=== PATIENT | female | born 1965 | race African-American/Black ===

== ENCOUNTER 2020-01-08 10:52 | Emergency (ER) | payer MEDICAID ==
[~2020-01-08] VITALS: Ht 172.7 cm; Wt 90.9 kg
[2020-01-08 11:22] LABS: BASO % 1 % (0-3); EOS # 0.1 x10^3/uL (0.0-0.7); EOS % 2 % (0-3); HEMATOCRIT 40.9 % (36.0-47.0); HEMOGLOBIN 13.4 g/dL (12.0-15.5); LYMPH # 1.7 x10^3/uL (1.0-4.8); LYMPH % 28 % (24-48); MEAN CORPUSCULAR HEMOGLOBIN 27 pg (25-35); MEAN CORPUSCULAR HGB CONC 33 g/dL (31-37); MEAN CORPUSCULAR VOLUME 81 fL (79-100); MONO # 0.5 x10^3/uL (0.0-1.1); MONO % 9 % (0-9); NEUT # 3.6 x10^3/uL (1.8-7.7); NEUT % 61 % (31-73); PLATELET COUNT 335 x10^3/uL (140-400); RED BLOOD COUNT 5.03 x10^6/uL (3.50-5.40); RED CELL DISTRIBUTION WIDTH 14.1 % (11.5-14.5); WHITE BLOOD COUNT 5.9 x10^3/uL (4.0-11.0)
[2020-01-08 11:34] LABS: CALCIUM 9.9 mg/dL (8.5-10.1); CREATININE 0.7 mg/dL (0.6-1.0); GFR 87.2; POTASSIUM 3.4 mmol/L (3.5-5.1)
[2020-01-08 11:39] LABS: ALBUMIN 3.2 g/dL (3.4-5.0); ALBUMIN/GLOBULIN RATIO 0.7 (1.0-1.7); TOTAL BILIRUBIN 0.4 mg/dL (0.2-1.0); TOTAL PROTEIN 8.1 g/dL (6.4-8.2)
[2020-01-08 11:54] LABS: PROTHROMBIN TIME PATIENT 13.4 SEC (11.7-14.0)
--- NOTE | 2020-01-08 11:58 | PHYS DOC ---
Past Medical History Past Medical History: Dementia, Hypertension, Hepatitis, Seizure Additional Past Medical Histor: ENCEPHALOPATHY Past Surgical History: Other Additional Past Surgical Histo: UNKNOWN Smoking Status: Former Smoker Alcohol Use: None General Adult EDM: Chief Complaint: ALTERED MENTAL STATUS HPI: HPI: Patient is a 54 year old female with history of dementia, hypertension, hepatitis, seizures, who presents today from a snf to be evaluated after having a seizure. [facility] staff reported to EMS patient had a seizure around 10 AM this morning. It is unknown how long the seizure lasted. Patient herself is nonverbal. Review of Systems: Review of Systems: Constitutional: unable to assess due to mental status Eyes: unable to assess due to mental status HENT: unable to assess due to mental status Respiratory: unable to assess due to mental status Cardiovascular: unable to assess due to mental status GI: unable to assess due to mental status : unable to assess due to mental status Musculoskeletal: unable to assess due to mental status Integument: unable to assess due to mental status Neurologic: Reports seizure. Denies headache, focal weakness or sensory changes. [] Psychiatric: unable to assess due to mental status Heart Score: Risk Factors: Risk Factors: DM, Current or recent (<one month) smoker, HTN, HLP, family histo ry of CAD, obesity. Risk Scores: Score 0 - 3: 2.5% MACE over next 6 weeks - Discharge Home Score 4 - 6: 20.3% MACE over next 6 weeks - Admit for Clinical Observation Score 7 - 10: 72.7% MACE over next 6 weeks - Early Invasive Strategies Physical Exam: PE: Constitutional: Well developed, well nourished, no acute distress, non-toxic appearance. [] HENT: Normocephalic, bilateral external ears normal, oropharynx moist, no oral exudates, nose normal. [] Eyes: PERRLA, EOMI, conjunctiva normal, no discharge. [] Neck: Normal range of motion, no tenderness, supple, no stridor. [] Cardiovascular:Heart rate regular rhythm, no murmur [] Lungs & Thorax: Bilateral breath sounds clear to auscultation [] Abdomen: Bowel sounds normal, soft, no tenderness, no masses, no pulsatile masses. [] Skin: Warm, dry, no erythema, no rash. [] Back: No tenderness, no CVA tenderness. [] Extremities: No tenderness, no cyanosis, no clubbing, ROM intact, no edema. [] Neurologic: Alert and oriented X 1, normal motor function, normal sensory function, no focal deficits noted. [] Psychologic: Flat affect. Current Patient Data: Labs: Laboratory Tests Test 01/08/20 11:03 White Blood Count 5.9 x10^3/uL (4.0-11.0) Red Blood Count 5.03 x10^6/uL (3.50-5.40) Hemoglobin 13.4 g/dL (12.0-15.5) Hematocrit 40.9 % (36.0-47.0) Mean Corpuscular Volume 81 fL (79-100) Mean Corpuscular Hemoglobin 27 pg (25-35) Mean Corpuscular Hemoglobin Concent 33 g/dL (31-37) Red Cell Distribution Width 14.1 % (11.5-14.5) Platelet Count 335 x10^3/uL (140-400) Neutrophils (%) (Auto) 61 % (31-73) Lymphocytes (%) (Auto) 28 % (24-48) Monocytes (%) (Auto) 9 % (0-9) Eosinophils (%) (Auto) 2 % (0-3) Basophils (%) (Auto) 1 % (0-3) Neutrophils # (Auto) 3.6 x10^3/uL (1.8-7.7) Lymphocytes # (Auto) 1.7 x10^3/uL (1.0-4.8) Monocytes # (Auto) 0.5 x10^3/uL (0.0-1.1) Eosinophils # (Auto) 0.1 x10^3/uL (0.0-0.7) Basophils # (Auto) 0.0 x10^3/uL (0.0-0.2) Sodium Level 147 mmol/L (136-145) H Potassium Level 3.4 mmol/L (3.5-5.1) L Chloride Level 110 mmol/L (98-107) H Carbon Dioxide Level 28 mmol/L (21-32) Anion Gap 9 (6-14) Blood Urea Nitrogen 23 mg/dL (7-20) H Creatinine 0.7 mg/dL (0.6-1.0) Estimated GFR (Cockcroft-Gault) 87.2 BUN/Creatinine Ratio 33 (6-20) H Glucose Level 95 mg/dL (70-99) Calcium Level 9.9 mg/dL (8.5-10.1) Total Bilirubin 0.4 mg/dL (0.2-1.0) Aspartate Amino Transferase (AST) 24 U/L (15-37) Alanine Aminotransferase (ALT) 23 U/L (14-59) Alkaline Phosphatase 80 U/L (46-116) Total Protein 8.1 g/dL (6.4-8.2) Albumin 3.2 g/dL (3.4-5.0) L Albumin/Globulin Ratio 0.7 (1.0-1.7) L Laboratory Tests 01/08/20 11:03 Laboratory Tests 01/08/20 11:03 Vital Signs: Vital Signs Date Time Temp Pulse Resp B/P (MAP) Pulse Ox O2 Delivery O2 Flow Rate FiO2 01/08/20 11:00 98.5 86 18 130/71 (90) 98 Room Air 98.5 EKG: EKG: [] Radiology/Procedures: Radiology/Procedures: []PROCEDURE: PORTABLE CHEST 1V EXAM: CHEST ONE VIEW. HISTORY: COVID-19 positive, altered mental status. COMPARISON: None.. FINDINGS: A frontal view of the chest is obtained. There are no confluent infiltrates. There is no pneumothorax or pleural effusion. The heart is not enlarged. IMPRESSION: 1. No confluent infiltrates. Electronically signed by: Ynes Carrasquillo MD (01/08/2020 12:11 PM) [facility] DICTATED and SIGNED BY: MARCO CARRASQUILLO MD DATE: 01/08/20 1211 PROCEDURE: CT HEAD WO CONTRAST EXAM: Head CT without contrast. HISTORY: Altered mental status. TECHNIQUE: Computed tomographic images of the head were obtained without contrast. *One or more of the following individualized dose reduction techniques were utilized for this examination: 1. Automated exposure control. 2. Adjustment of the mA and/or kV according to patient size. 3. Use of iterative reconstruction technique. COMPARISON: None. FINDINGS: There is no hemorrhage. There is no mass effect or midline shift. There is cerebral volume loss with compensatory enlargement of the ventricles, within expected for patient age. There are areas of decreased attenuation within the cerebral white matter, nonspecific and likely related to chronic small vessel disease. The visualized portions of the orbits, paranasal sinuses and mastoid air cells are unremarkable. No suspicious calvarial lesion is seen. IMPRESSION: 1. No acute intracranial finding. Note is made that MRI is more sensitive for acute infarction. 2. Bilateral cerebral white matter changes, a nonspecific finding which can be seen with chronic small vessel disease. This is advanced for patient age. 3. Cerebral volume loss, also advanced for patient age. Electronically signed by: Lelo Gunn MD (01/08/2020 11:53 AM) [id number] DICTATED and SIGNED BY: LELO GUNN MD DATE: 01/08/20 1153 Course & Med Decision Making: Course & Med Decision Making Pertinent Labs and Imaging studies reviewed. (See chart for details) This is a 54-year-old female patient presenting to the ED today to be evaluated after having a seizure in a snf. Patient is nonverbal. She has history of seizures. CT of the head, chest x-ray, and negative for any acute findings. CBC with no acute findings, CMP with sodium of 147, potassium 3.4, creatinine and BUN are normal. Urine analysis noted for small amount of leukocytes as well as specific gravity greater than >1.030, 30 proteins and ketones. Patient was given IV fluids in the ED. She was given Rocephin. Her lactic is normal at 1.8. [facility] staff that knows this patient called and said her current mental status is her baseline. Patient was discharged back to the snf. Dragon Disclaimer: Dragon Disclaimer: This electronic medical record was generated, in whole or in part, using a voice recognition dictation system. Departure Departure Impression: Primary Impression: UTI (urinary tract infection) Qualified Codes: N39.0 - Urinary tract infection, site not specified Additional Impression: Dehydration Disposition: 01 HOME, SELF-CARE Condition: STABLE Referrals: MYRANDA DAVIES MD (PCP) follow up in 1 week with your doctor Patient Instructions: Dehydration, Adult, Urinary Tract Infection Additional Instructions: Your urine was positive for urinary tract infection, take the prescribed antibiotics until completed. Follow-up with your own doctor in the course of this week. He also noted to be dehydrated. Push fluids. Scripts Cephalexin (CEPHALEXIN) 500 Mg Tablet 1 TAB PO BID, #14 TAB Prov: MABEL PEREZ PERCY 01/08/20 Justicifation of Admission Dx: Justifications for Admission: Justification of Admission Dx: N/A MABEL PEREZ APRN Jan 08, 2020 11:58
--- NOTE | 2020-01-08 12:14 | RAD ---
EXAM: CHEST ONE VIEW. HISTORY: COVID-19 positive, altered mental status. COMPARISON: None.. FINDINGS: A frontal view of the chest is obtained. There are no confluent infiltrates. There is no pneumothorax or pleural effusion. The heart is not enlarged. IMPRESSION: 1. No confluent infiltrates. Electronically signed by: Ynes Carrasquillo MD (01/08/2020 12:11 PM) [facility]
[2020-01-08] MEDS ORDERED: IV NORMAL SALINE 1000ML BAG 1,000 ML IV ONE (12:30)
[2020-01-08 14:29] LABS: BILIRUBIN,URINE SMALL (NEG); CLARITY,URINE CLEAR; COLOR,URINE AMBER; NITRITE,URINE NEGATIVE (NEG); PH,URINE 5.5 (<5.0-8.0); PROTEIN,URINE 30 mg/dL (NEG-TRACE)
[2020-01-08 14:39] LABS: HYALINE CASTS, URINE MODERATE /HPF; SQUAMOUS EPITHELIAL CELL,UR FEW /LPF
[2020-01-08 14:40] LABS: BACTERIA,URINE 0 /HPF (0-FEW)
[2020-01-08] MEDS ORDERED: CEPH500T PO (14:56)
[2020-01-08] MEDS ORDERED: cefTRIAXone IV Push 1 GM VIAL. IVP ONE (15:00)
[2020-01-08 16:30] VITALS: BP 128/77
--- NOTE | 2020-01-10 18:01 | EKG ---
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
== END 2020-01-08 16:30 | disposition home or self-care (01) ==
LOC: ER 10:52
DX: N39.0 Urinary tract infection, site not specified (principal); E86.0 Dehydration; R56.9 Unspecified convulsions; R41.82 Altered mental status, unspecified; I10 Essential (primary) hypertension; R94.31 Abnormal electrocardiogram [ECG] [EKG]; F03.90 Unspecified dementia, unspecified severity, without behavioral disturbance, psychotic disturbance, mood disturbance, and anxiety; Z87.891 Personal history of nicotine dependence
CPT/HCPCS: 36415; 70450; 71045; 80053; 81001; 82553; 83605; 84145; 85025; 85610; 85730; 87040; 87086; 93005; 96361; 96374; 99285; J0696; J7030

== ENCOUNTER 2020-07-15 14:27 | Emergency (ER) | payer MEDICAID ==
[~2020-07-15] VITALS: Ht 172.7 cm; Wt 81.0 kg
[2020-07-15 14:27] VITALS: BP 120/57
[~2020-07-15 14:27] MED LIST: CEPH500T PO
[2020-07-15] MEDS ORDERED: DIPH,PERTUSS(ACELL),TET VAC/PF 0.5 ML SYRINGE. VAX IM ONE (15:00)
--- NOTE | 2020-07-15 15:30 | PHYS DOC ---
Past Medical History Past Medical History: Dementia, Hypertension, Hepatitis, Seizure Additional Past Medical Histor: ENCEPHALOPATHY Past Surgical History: Other Additional Past Surgical Histo: UNKNOWN Smoking Status: Former Smoker Alcohol Use: None General Adult EDM: Chief Complaint: MECHANICAL FALL HPI: HPI: Patient is a 54 year old female who presents with here by EMS from [facility] after she was sitting in her wheelchair and was witnessed falling forward and sliding out of the wheelchair. She did hit her head mid forehead on the edge of the table causing 1/2 cm laceration. [facility] states that the patient is acting normal and at her baseline. She does have Alzheimer's disease and does not follow commands and is nonverbal. [facility] states that the patient did not lose consciousness. Patient is not on blood thinners. She is a DNR. She has a history of Alzheimer's, dementia, hepatitis, hypertension, encephalopathy, seizures, muscle weakness and failure to thrive. Using faces pain scale patient would rate at a 4 out of 10. Review of Systems: Review of Systems: Constitutional: Denies fever or chills. [] Eyes: Denies change in visual acuity. [] HENT: Denies nasal congestion or sore throat. [] Respiratory: Denies cough or shortness of breath. [] Cardiovascular: Denies chest pain or edema. [] GI: Denies abdominal pain, nausea, vomiting, bloody stools or diarrhea. [] : Denies dysuria. [] Musculoskeletal: Denies back pain or joint pain. + Fall [] Integument: Denies rash. Forehead laceration [] Neurologic: + headache, denies focal weakness or sensory changes. [] Endocrine: Denies polyuria or polydipsia. [] Lymphatic: Denies swollen glands. [] Psychiatric: Denies depression or anxiety. [] Heart Score: C/O Chest Pain: N/A Risk Factors: Risk Factors: DM, Current or recent (<one month) smoker, HTN, HLP, family history of CAD, obesity. Risk Scores: Score 0 - 3: 2.5% MACE over next 6 weeks - Discharge Home Score 4 - 6: 20.3% MACE over next 6 weeks - Admit for Clinical Observation Score 7 - 10: 72.7% MACE over next 6 weeks - Early Invasive Strategies Current Medications: Current Medications Medications (Trade) Dose Ordered Sig/Yousuf Start Time Stop Time Status Last Admin Dose Admin Diphtheria/ Tetanus/Acell Pertussis (ADACEL TDap SYRINGE) 0.5 ml ONCE ONCE 07/15/20 15:00 07/15/20 15:09 DC Allergies: Allergies: Allergies Coded Allergies Type Severity Reaction Last Updated Verified tuberculin, purified protein deriva Allergy Unknown 01/08/20 Yes tuberculin,PPD,multi-puncture Allergy Unknown 01/08/20 Yes Physical Exam: PE: Constitutional: Well developed, well nourished, no acute distress, non-toxic appearance. [] HENT: Normocephalic, atraumatic, bilateral external ears normal, oropharynx moist, no oral exudates, nose normal. [] Eyes: PERRLA, EOMI, conjunctiva normal, no discharge. [] Neck: Normal range of motion, no tenderness, supple, no stridor. [] Cardiovascular:Heart rate regular rhythm, no murmur [] Lungs & Thorax: Bilateral breath sounds clear to auscultation [] Abdomen: Bowel sounds normal, soft, no tenderness, no masses, no pulsatile masses. [] Skin: Warm, dry, no erythema, no rash. Laceration to mid forehead with hematoma [] Back: Cervical through lumbar focal bony spinal tenderness, no CVA tenderness. [] Extremities: No tenderness, no cyanosis, no clubbing, ROM intact, no edema. [] Neurologic: Alert and oriented X 3, normal motor function, normal sensory funct ion, no focal deficits noted. [] Psychologic: Affect normal, judgement normal, mood normal. [] Current Patient Data: Vital Signs: Vital Signs Date Time Temp Pulse Resp B/P (MAP) Pulse Ox O2 Delivery O2 Flow Rate FiO2 07/15/20 14:27 97.4 60 18 120/57 (78) 99 Room Air 97.4 EKG: EK AND READ BY DR FRANCE SINUS RHYTHM AND NO STEMI[] Radiology/Procedures: Radiology/Procedures: [] Impression: [facility] [address] [place] [address] IMAGING REPORT Signed PATIENT: TORRIE BRAR ACCOUNT: [id number] : 1965 LOCATION: ER AGE: 54 SEX: F EXAM STATUS: REG ER ORD. PHYSICIAN: SULLY NICOLE APRN REASON: FALL, HEAD LACERATION PROCEDURE: CT HEAD AND CERVICAL SPINE WO Exam: CT head, maxillofacial, cervical spine, thoracic spine lumbar spine without contrast INDICATION: Fall, head laceration TECHNIQUE: Sequential axial images through the head, maxillofacial, cervical spine, thoracic spine and lumbar spine were obtained without the administration of IV contrast. Comparisons: CT head without contrast 01/08/2020 FINDINGS: Head: No focal parenchymal lesion or hemorrhage is identified. There is no midline shift or sulcal effacement. Mild patchy hypodensity in the periventricular white matter, similar to prior exam. No acute vascular territory infarction is identified. Mcfadden-white distinction is preserved. The ventricular system is within normal limits without compression hydrocephalus. The basal cisterns are well maintained. Face: Extra cranial soft tissue scalp contusion in the right frontal region. Globes intradural contents are normal. The visualized portions of the paranasal sinuses and mastoid air cells are well-pneumatized. No acute fractures. Cervical spine: Vertebral body heights and alignment are well-maintained. Fracture to the cervical spine is not identified. Multilevel spondylotic change in cervical spine with degenerative disc disease g reatest at C4-C5 and C5-C6. Mild bilateral facet arthropathy is also noted in cervical spine. Visualized paraspinal soft tissues are unremarkable. Thoracic spine: Vertebral body heights and alignment are well-maintained. Fracture through the thoracic spine is not identified. No significant spondylotic change in the thoracic spine. Visualized paraspinal soft tissues are unremarkable. Lumbar spine: Vertebral body heights are well-maintained. Grade 1 anterolisthesis of L4 on L5. Fracture to the lumbar spine is not identified. Multilevel spondylotic change in the lumbar spine with degenerative disease greatest at L5-S1. Likely simple cyst at the upper pole of the left kidney incompletely characterized on noncontrast exam. Moderate amount of stool at the rectum. IMPRESSION: 1. No acute intracranial abnormality. 2. Mild extra cranial soft tissue scalp contusion overlying the right frontal region without underlying osseous abnormality. 3. Negative CT C-spine for acute traumatic injury. 4. Negative CT thoracic spine for acute traumatic injury. 5. Negative CT lumbar spine for acute traumatic injury. Exposure: One or more of the following in the visualized dose reduction techniques were utilized for this examination: 1. Automated exposure control 2. Adjustment of the MA and/or KV according to patient size Use of iterative of reconstructive technique Electronically signed by: Katina Suh MD (07/15/2020 4:16 PM) [facility] DI[facility]ATED and SIGNED BY: KATINA SUH MD DATE: 07/15/20 [id number] [facility] [address] [place] [address] IMAGING REPORT Signed PATIENT: TORRIE BRRA ACCOUNT: [id number] : 1965 LOCATION: ER AGE: 54 SEX: F EXAM STATUS: REG ER ORD. PHYSICIAN: SULLY NICOLE APRN REASON: FALL, NONVERBAL;PT CONTRACTED-LIMITED EXAM PROCEDURE: HIP BILATERAL WITH PELVIS Exam performed: X-ray pelvis and bilateral hips HISTORY: Fall, patient is nonverbal with contractures. DATE OF SERVICE: 07/16/2020. COMPARISON: None available FINDINGS: Single AP view pelvis and AP and crosstable lateral views of bilateral hips are obtained. Study somewhat limited due to patient positioning secondary to contractures. Bilateral hip joints appear grossly intact. There is no acute displaced fracture or dislocation. No soft tissue swelling or foreign body seen. IMPRESSION: No acute fracture or dislocation seen. Electronically signed by: Nydia Wilkins MD (07/15/2020 4:42 PM) [facility] DICTATED and SIGNED BY: NYDIA WILKINS MD DATE: 07/15/20 [id number] 0 Course & Med Decision Making: Course & Med Decision Making Pertinent Labs and Imaging studies reviewed. (See chart for details) See HPI. Alert but nonverbal. Patient does pull away as I am palpating her spine from cervical down to lumbar. Patient has a large hematoma to the mid forehead with laceration that is 0.5cm. The area is tender to touch. No other swelling or deformity to the patient's face, no swelling or deformity or bruising or abrasions to the patient's back. No pain is elicited with pelvic rock. Abdomen is soft and nontender. There is no bruising. Patient is contracted laying on her side. She did not bite her tongue. No damage seen to teeth. No extremity or joint deformity or swelling. Patient is given a tetanus shot in the ED. Laceration repair Location: Mid forehead 0.5 cm laceration with edges approximated Local anesthesia: None Interrupted sutures/Internal sutures: Dermabond and Steri-Strips Nerve/ligament/muscle damage: None Cleaning and irrigation: Saline and chlorhexidine The appropriate timeout was taken. The area was prepped and draped in the usual sterile fashion. The wound was copiously irrigated with normal saline and chlorhexidine. Patient tolerated well without complication. Dressing was applied to the area follow-up education is given to observe for signs and symptoms of infection, bleeding and to follow-up promptly if these occur. Patient can return in 48 hours for a wound recheck. Sutures to be removed in 7 to 10 days. [] Dragon Disclaimer: Dragon Disclaimer: This electronic medical record was generated, in whole or in part, using a voice recognition dictation system. Departure Departure Impression: Primary Impression: Laceration Additional Impressions: Fall Qualified Codes: W19.XXXA - Unspecified fall, initial encounter Head injury Qualified Codes: S09.90XA - Unspecified injury of head, initial encounter Disposition: 01 DC HOME SELF CARE/HOMELESS Condition: STABLE Referrals: MYRANDA DAVIES MD (PCP) Patient Instructions: Facial Laceration, Stitches, Nidhi or Skin Adhesive Strips, [id number] Additional Instructions: Follow up with primary care if needed. Do not apply any ointment or scrub over the derma cesar as this may reopen the wound. Watch for signs of infection. If vomiting or AMS occurs return to the ED. SULLY NICOLE APRN Jul 15, 2020 15:30
[2020-07-15 15:33] LABS: BASO % 0 % (0-3); EOS # 0.1 x10^3/uL (0.0-0.7); EOS % 2 % (0-3); HEMATOCRIT 35.5 % (36.0-47.0); HEMOGLOBIN 11.6 g/dL (12.0-15.5); LYMPH # 2.5 x10^3/uL (1.0-4.8); LYMPH % 40 % (24-48); MEAN CORPUSCULAR HEMOGLOBIN 27 pg (25-35); MEAN CORPUSCULAR HGB CONC 33 g/dL (31-37); MEAN CORPUSCULAR VOLUME 84 fL (79-100); MONO # 0.4 x10^3/uL (0.0-1.1); MONO % 7 % (0-9); NEUT # 3.2 x10^3/uL (1.8-7.7); NEUT % 51 % (31-73); PLATELET COUNT 291 x10^3/uL (140-400); RED BLOOD COUNT 4.25 x10^6/uL (3.50-5.40); RED CELL DISTRIBUTION WIDTH 14.9 % (11.5-14.5); WHITE BLOOD COUNT 6.2 x10^3/uL (4.0-11.0)
[2020-07-15 15:42] LABS: CALCIUM 8.9 mg/dL (8.5-10.1); CREATININE 0.8 mg/dL (0.6-1.0); GFR 90.4; POTASSIUM 3.9 mmol/L (3.5-5.1)
[2020-07-15 15:49] LABS: ALBUMIN 3.2 g/dL (3.4-5.0); ALBUMIN/GLOBULIN RATIO 0.9 (1.0-1.7); TOTAL BILIRUBIN 0.3 mg/dL (0.2-1.0); TOTAL PROTEIN 6.8 g/dL (6.4-8.2)
--- NOTE | 2020-07-15 16:18 | RAD ---
Exam: CT head, maxillofacial, cervical spine, thoracic spine lumbar spine without contrast INDICATION: Fall, head laceration TECHNIQUE: Sequential axial images through the head, maxillofacial, cervical spine, thoracic spine an d lumbar spine were obtained without the administration of IV contrast. Comparisons: CT head without contrast 01/08/2020 FINDINGS: Head: No focal parenchymal lesion or hemorrhage is identified. There is no midline shift or sulcal effaceme nt. Mild patchy hypodensity in the periventricular white matter, similar to prior exam. No acute vascular territory infarction is identified. Mcfadden-white distinction is preserved. The ventricular system is within normal limits without compression hydrocephalus. The basal cisterns are well maintained. Face: Extra cranial soft tissue scalp contusion in the right frontal region. Globes intradural contents are normal. The visualized portions of the paranasal sinuses and mastoid air cells are well-pneumatized. No acute fractures. Cervical spine: Vertebral body heights and alignment are well-maintained. Fracture to the cervical spine is not identified. Multilevel spondylotic change in cervical spine with degenerative disc disease greatest at C4-C5 and C5-C6. Mild bilateral facet arthropathy is also noted in cervical spine. Visualized paraspinal soft tissues are unremarkable. Thoracic spine: Vertebral body heights and alignment are well-maintained. Fracture through the thoracic spine is not identified. No significant spondylotic change in the thoracic spine. Visualized paraspinal soft tissues are unremarkable. Lumbar spine: Vertebral body heights are well-maintained. Grade 1 anterolisthesis of L4 on L5. Fracture to the lumbar spine is not identified. Multilevel spondylotic change in the lumbar spine with degenerative disease greatest at L5-S1. Likely simple cyst at the upper pole of the left kidney incompletely characterized on noncontrast exa m. Moderate amount of stool at the rectum. IMPRESSION: 1. No acute intracranial abnormality. 2. Mild extra cranial soft tissue scalp contusion overlying the right frontal region without underly ing osseous abnormality. 3. Negative CT C-spine for acute traumatic injury. 4. Negative CT thoracic spine for acute traumatic injury. 5. Negative CT lumbar spine for acute traumatic injury. Exposure: One or more of the following in the visualized dose reduction techniques were utilized for this examination: 1. Automated exposure control 2. Adjustment of the MA and/or KV according to patient size Use of iterative of reconstructive technique Electronically signed by: Katina Rodriguez MD (07/15/2020 4:16 PM) [facility]
--- NOTE | 2020-07-15 16:44 | RAD ---
Exam performed: X-ray pelvis and bilateral hips HISTORY: Fall, patient is nonverbal with contractures. DATE OF SERVICE: 07/16/2020. COMPARISON: None available FINDINGS: Single AP view pelvis and AP and crosstable lateral views of bilateral hips are obtained. Study somewhat limited due to patient positioning secondary to contractures. Bilateral hip joints leonie ear grossly intact. There is no acute displaced fracture or dislocation. No soft tissue swelling or f oreign body seen. IMPRESSION: No acute fracture or dislocation seen. Electronically signed by: Nydia Wilkins MD (07/15/2020 4:42 PM) [facility]
[2020-07-15 17:12] LABS: BILIRUBIN,URINE NEGATIVE (NEG); CLARITY,URINE CLEAR; COLOR,URINE YELLOW; NITRITE,URINE NEGATIVE (NEG); PH,URINE 6.5 (<5.0-8.0); PROTEIN,URINE NEGATIVE (NEG-TRACE)
[2020-07-15 17:21] LABS: BACTERIA,URINE 0 /HPF (0-FEW); RBC,URINE 0 /HPF (0-2); WBC,URINE OCC /HPF (0-4)
--- NOTE | 2020-07-15 18:14 | EKG ---
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
== END 2020-07-15 18:27 | disposition home or self-care (01) ==
LOC: ER 14:27
DX: S01.81XA Laceration without foreign body of other part of head, initial encounter (principal); I10 Essential (primary) hypertension; G30.9 Alzheimer's disease, unspecified; F02.80 Dementia in other diseases classified elsewhere, unspecified severity, without behavioral disturbance, psychotic disturbance, mood disturbance, and anxiety; Z87.891 Personal history of nicotine dependence; Z88.1 Allergy status to other antibiotic agents; W05.0XXA Fall from non-moving wheelchair, initial encounter; Y93.89 Activity, other specified; Y92.89 Other specified places as the place of occurrence of the external cause; Y99.8 Other external cause status
CPT/HCPCS: 12011; 36415; 70450; 70486; 72125; 72128; 72131; 73521; 80053; 81001; 84484; 85025; 90471; 90715; 93005; 99285-25